=== PATIENT | female | born 1955 | race Caucasian/White ===

== ENCOUNTER 2016-06-06 07:35 | Emergency (ER) | payer OTHER ==
[2016-06-06 07:47] VITALS: BP 126/61
--- NOTE | 2016-06-06 08:53 | RAD ---
Indication: Lateral RIGHT ankle and foot pain post fall running yesterday. Comparison: None. Technique: AP, mortise, and lateral views RIGHT ankle . AP, lateral, and oblique views RIGHT foot. Report: Severe soft tissue swelling over the lateral malleolus. In addition to a chronic ossicle approximating the caudal margin of the lateral malleolus likely reflecting sequela of a previous avulsion fracture there is osseous irregularity at the lateral margin at the interface of the dominant lateral malleolus with the presumed old avulsion fragment suspicious for new grossly nondisplaced fracture. Negative for additional fracture about the ankle. Normal articular alignment about the ankle. Negative for fracture or malalignment at the foot. Preserved joint spaces. Unremarkable soft tissue contours distal to the ankle. IMPRESSION: Acute grossly nondisplaced fracture at the inferior margin of the lateral malleolus with stigmata of previous old avulsion fracture. Severe overlying soft tissue swelling. The ankle mortise remains congruent.
--- NOTE | 2016-06-06 09:23 | UC ---
Ethan Vogel Billy, scribed for Douglas Sterling MD on 06/06/16 at 0917 . Lower Extremity/Ankle HPI - HPI Summary HPI Summary: In Room Note: Patient is a 60 year-old female coming to [facility] for evaluation of right ankle and foot pain after tripping while running last night. There is swelling on the ankle. Pain is worse with ambulation and weightbearing, but she is still able to bear weight on the leg. Note: Vitals stable. Nurse's Note: Pt states she tripped while running in the [place] last night () and hurt her Right ankle, right foot, right chin pain. Pt states she has swelling on right side of her ankle. Pt denies any LOC and head/neck/back pain. - History of Current Complaint Chief Complaint: UCLowerExtremity Stated Complaint: FELL-RT ANKLE INJ Time Seen by Provider: 06/06/16 07:50 Hx Obtained From: Patient Onset/Duration: Sudden Onset, Still Present Severity Initially: Moderate Severity Currently: Moderate Pain Intensity: 8 Pain Scale Used: 0-10 Numeric Aggravating Factor(s): Standing, Ambulation Alleviating Factor(s): Rest Able to Bear Weight: Yes - Allergies/Home Medications Allergies/Adverse Reactions: Allergies Allergy/AdvReac Type Severity Reaction Status Date / Time No Known Allergies Allergy Verified 06/06/16 07:40 PMH/Surg Hx/FS Hx/Imm Hx Endocrine History Of: Denies: Diabetes Cardiovascular History Of: Denies: Cardiac Disorders - Surgical History Surgical History: Yes Surgery Procedure, Year, and Place: Left shoulder surgery; nasal fx set - Family History Known Family History: Negative: Hypertension - Social History 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1 F 06/06/16 07:41 Pulse 56 06/06/16 07:41 Resp 14 06/06/16 07:41 BP 126/61 06/06/16 07:41 Pulse Ox 100 06/06/16 07:41 Vital Signs Reviewed: Yes Eyes: Positive: Conjunctiva Clear ENT: Positive: Hearing grossly normal, Pharynx normal, TMs normal. Negative: Muffled/hoarse voice Neck: Positive: Supple, No Lymphadenopathy Respiratory: Positive: Chest non-tender, Lungs clear, Normal breath sounds, No respiratory distress Cardiovascular: Positive: RRR, No Murmur Abdomen Description: Positive: Nontender, No Organomegaly, Soft Bowel Sounds: Positive: Present Musculoskeletal Exam: Other - THERE IS MODERATE SWELLING OF THE LATERAL RIGHT MALLEOLUS. THERE IS NO PAIN OVER THE MEDIAL MALLEOLUS. THERE IS ECCHYMOSIS OVER THE DORSUM OF THE RIGHT FOOT. NO PAIN OVER THE FIFTH METATARSAL. TENDERNESS OF THE ANTERIOR TALOFIBULAR LIGAMENT AND OVER THE STYLOID OF THE FIBULA. Neurological: Positive: Alert Psychological: Positive: Age Appropriate Behavior Skin: Negative: rashes Diagnostics - Radiology Right Ankle Xray Radiology Interpretation Completed By: Radiologist - Acute grossly nondisplaced fracture at the inferior margin of the lateral malleolus with stigmata of previous old avulsion fracture. Severe overlying soft tissue swelling. The ankle mortise remains congruent. Right Foot XRay Radiology Interpretation Completed By: Radiologist - Acute grossly nondisplaced fracture at the inferior margin of the lateral malleolus with stigmata of previous old avulsion fracture. Severe overlying soft tissue swelling. The ankle mortise remains congruent. Lower Extremity Course/Dx - Course Course Of Treatment: Medications have been included in the original chart and reviewed. Patient is Urgent/Emergent. BP elevated due to current condition w/o HTN in PMH. This is a 60 year-old female coming to the [facility] for evaluation of right ankle and foot pain since last night. X-rays shows an acute grossly nondisplaced fracture at the inferior margin of the lateral malleolus with stigmata of previous old avulsion fracture. Discussed the condition with the patient, who has a fracture of the distal fibula. She will be given a gel cast and crutches to follow up with orthopedics. - Differential Dx/Diagnosis Provider Diagnoses: nondisplaced fracture at the inferior margin of the lateral malleolus with stigmata of previous old avulsion fracture Discharge - Discharge Plan Condition: Stable Disposition: HOME Patient Education Materials: Ankle Fracture (ED) Referrals: Bettina Ann NP [Nurse Practitioner] - Additional Instructions: WE DISCUSSED: You have a fracture in the thin bone at your right ankle. Gelcast, demetrius, crutches, non-weight bearing until you follow up with your orthopedist. Warm moist heat in the morning and then ice for pain during the day. Elevate. Call us for any questions or concerns. "If it hurts, don't do it," is a good rule of thumb. The documentation as recorded by the Ethan hubbard Billy accurately reflects the service I personally performed and the decisions made by me, Douglas Sterling MD.
== END 2016-06-06 09:40 | disposition home or self-care (01) ==
LOC: UCEAST 07:35
DX: S82.64XA Nondisplaced fracture of lateral malleolus of right fibula, initial encounter for closed fracture (principal); W18.40XA Slipping, tripping and stumbling without falling, unspecified, initial encounter; Y93.02 Activity, running; Y92.821 Forest as the place of occurrence of the external cause
CPT/HCPCS: 99213; G0463

== ENCOUNTER 2018-01-15 13:11 | Emergency (ER) | payer OTHER ==
--- OUTSIDE RECORDS SUMMARY | 2018-01-15 13:19 | XMS REPORT | Continuity of Care Document ---
:1955 External Reference #:[id number] Author Name Osito Acharya D.O. Address [address] [place] [address] Care Team Providers Name Role Phone HCP given Primary Care Physician Unavailable Payers Type Date Identification Numbers Payment Provider Subscriber Effective: 2006 Policy Number: [id number] [facility] Bárbara Shelby PayID: [id number] [address] [place] [address] Advance Directives Description No Information Available Problems Description No Information Family History Date Family Member(s) Problem(s) Comments General Allergic Rhinitis Father Diabetes, Nos Father Hypertension Father Hypercholesterolemia Mother Allergic Rhinitis Mother Breast Cancer breast cancer in her 60's Mother Hypertension Mother Hypercholesterolemia : (2005) Mother due to Colon Cancer Siblings 3 1 brother 2 sisters First Sister Allergic Rhinitis First Sister Obesity : (2009) Second Sister due to Severe cerebral pt states her sister patricia was expected to live for 2 yrs. Social History Type Date Description Comments Sex Unknown Education High School Completed Education Highest Level Completed Post Grad Marital Status Work Status Currently Working ETOH Use Rarely consumes alcohol Recreational Drug Use Former Drug User smoked a lil radha harris Enjoy Exercising Enjoys exercising Sun Exposure Does not use sunscreen Seat Belt/Car Seat Seat Belt Use - Yes Currently Active Patient is currently sexually active Contraceptive Methods None Age Age 1st [place] 18 Years Old # Partners in a Lifetime Partners 1-5 Allergies, Adverse Reactions, Alerts Date Description Reaction Status Severity Comments 12/09/2016 Environmental Active Medications Medication Date Status Form Strength Qnty SIG Indications Ordering Provider Vitamin D 12/30/ Active one po Unknown 2017 daily Restasis 12/30/ Active Emulsion 0.05% 1 drop both Unknown 2017 eyes every 12 hours Butalbital/Acet 09/29/ Active Capsules 50-325-40m 14caps 1-2 at G43.909 Marck aminophen/Caffe 2017 g onset of Osito, ine migraine D.O. every 6 hours as needed for migraine code d Doxycycline 11/17/ Hx Tablets 100mg 28tabs 1 cap by A69.20 Marck Hyclate 2018 - mouth twice Osito, 12/01/ a day for D.O. 2018 14 days Triamcinolone 08/14/ Hx Ointment 0.5% 15gm apply S70.362A Silcoff, Acetonide 2018 - morning and Segun, 08/21/ night and M.D. 2018 rub in well to the affected area x 7 days, or less Benadryl 09/29/ Hx Capsules 25mg as needed Unknown Allergy 2017 - for allergies 2017 Immunizations CPT Code Status Date Vaccine Lot # [id number] Given 10/11/2017 Influenza Virus Vaccine, Quadrivalent, Split, [place] Use 6[address]45 Given 11/28/2016 Influenza Virus Vaccine, Quadrivalent, Split, Preservative Free 07909 Given 12/20/2015 Influenza Virus Vaccine, Quadrivalent, Split, Preservative Free 49218 Given 02/25/2013 Influenza Virus Vaccine, Quadrivalent, Split, Preservative Free 97479 Given 11/22/2011 Adacel or Boostrix, TDaP 97228 Given 11/22/2011 Influenza Virus Vaccine, Quadrivalent, Split, Preservative Free 58424 Given 11/22/2010 Influenza Virus Vaccine, Quadrivalent, Split, Preservative Free 49831 Given 11/08/2009 Influenza Virus Vaccine, Quadrivalent, Split, Preservative Free 94207 Given 03/02/2009 Influenza Virus Vaccine, Quadrivalent, Split, Preservative Free 99283 Given 12/01/2007 Influenza Virus Vaccine, Quadrivalent, Split, Preservative Free 98118 Given 11/26/2006 Influenza Virus Vaccine, Quadrivalent, Split, Preservative Free 41660 Given 12/17/2005 Influenza Virus Vaccine, Quadrivalent, Split, Preservative Free Vital Signs Date Vital Result Comment 01/06/2018 9:14am BP Systolic 124 mmHg BP Diastolic 78 mmHg Height 66 inches 5'6" Weight 148.00 lb BMI (Body Mass Index) 23.9 kg/m2 11/17/2017 4:02pm BP Systolic 122 mmHg BP Diastolic 74 mmHg Weight 143.00 lb 08/14/2017 3:10pm BP Systolic 134 mmHg BP Diastolic 82 mmHg Weight 143.00 lb 12/31/2016 9:21am BP Systolic 135 mmHg BP Diastolic 80 mmHg Height 66.25 inches with shoes Weight 145.00 lb with shoes BMI (Body Mass Index) 23.2 kg/m2 09/30/2016 9:54am BP Systolic 140 mmHg BP Diastolic 84 mmHg Height 65.75 inches 5'5.75" Weight 137.00 lb BMI (Body Mass Index) 22.3 kg/m2 Results Test Date Facility Test Result H/L Range Note Laboratory test 12/12/2017 [facility] Glucose 87 mg/dL N 70-100 finding [phone] Lipid Profile 12/12/2017 [facility] Triglycerides 106 mg/dL 1 (Trig/Chol/HDL) [phone] Cholesterol 217 mg/dL 2 HDL Cholesterol 87.9 mg/dL 3 LDL Cholesterol 108 mg/dL 4 Lyme Western Blot 12/12/2017 [facility] Lyme Disease IgG Negative Negative [phone] Ab WB Lyme Disease IgG Bands Present p41 kDa Lyme Disease IgM Ab WB Negative Negative Lyme Disease IgM Bands Present No bands detecte <SEE NOTE> kDa 5 Lyme Disease Interpretation See Comment 6 CBC Auto Diff 12/12/2017 [facility] White Blood Count 5.7 10^3/uL N 3.5-10.8 [phone] Red Blood Count 4.28 10^6/uL N 4.00-5.40 Hemoglobin 13.0 g/dL N 12.0-16.0 Hematocrit 39 % N 35-47 Mean Corpuscular Volume 91 fL N 80-97 Mean Corpuscular Hemoglobin 30 pg N 27-31 Mean Corpuscular HGB Conc 33 g/dL N 31-36 Red Cell Distribution Width 14 % N 10.5-15 Platelet Count 288 10^3/uL N 150-450 Mean Platelet Volume 7.2 fL Low 7.4-10.4 Abs Neutrophils 2.1 10^3/uL N 1.5-7.7 Abs Lymphocytes 2.9 10^3/uL N 1.0-4.8 Abs Monocytes 0.3 10^3/uL N 0-0.8 Abs Eosinophils 0.4 10^3/uL N 0-0.6 Abs Basophils 0 10^3/uL N 0-0.2 Abs Nucleated RBC 0 10^3/uL Granulocyte % 36.4 % Low 38-83 Lymphocyte % 50.4 % High 25-47 Monocyte % 5.2 % N 0-7 Eosinophil % 7.4 % High 0-6 Basophil % 0.6 % N 0-2 Nucleated Red Blood Cells % 0.3 Comp Metabolic Panel 12/12/2017 [facility] Sodium 144 mmol/L N 135- 145 [phone] Potassium 4.6 mmol/L N 3.5-5.0 Chloride 105 mmol/L N 101-111 Co2 Carbon Dioxide 32 mmol/L N 22-32 Anion Gap 7 mmol/L N 2-11 Blood Urea Nitrogen 13 mg/dL N 6-24 Creatinine 0.89 mg/dL N 0.51-0.95 BUN/Creatinine Ratio 14.6 N 8-20 Calcium 9.6 mg/dL N 8.6-10.3 Total Protein 7.1 g/dL N 6.4-8.9 Albumin 4.4 g/dL N 3.2-5.2 Globulin 2.7 g/dL N 2-4 Albumin/Globulin Ratio 1.6 N 1-3 Total Bilirubin 0.50 mg/dL N 0.2-1.0 Alkaline Phosphatase 71 U/L N 34-104 Alt 19 U/L N 7-52 Ast 27 U/L N 13-39 Egfr Non- 64.7 >60 Egfr 78.3 >60 7 Laboratory test 12/12/2017 [facility] TSH (Thyroid 2.84 mcIU/mL N 0.34-5.60 8 finding [phone] Stim Horm) Vitamin D Total 25(Oh) 31.7 ng/mL N 20-50 9 Laboratory test 11/29/2016 [facility] Vitamin D Total 27.3 ng/mL N 20 -50 10 finding [phone] 25(Oh) Lipid Profile 11/29/2016 [facility] Triglycerides 50 mg/dL N 11 (Trig/Chol/HDL) [phone] Cholesterol 230 mg/dL N 12 HDL Cholesterol 87.8 mg/dL N 13 LDL Cholesterol 132 mg/dL N 14 Laboratory test 11/29/2016 [facility] Hepatitis C Nonreactive N Nonreactive 15 finding [phone] Antibody TSH (Thyroid Stim Horm) 2.95 mcIU/mL N 0.34-5.60 16 Comp Metabolic Panel 11/29/2016 [facility] Sodium 139 mmol/L N 133- 145 [phone] Potassium 4.6 mmol/L N 3.5-5.0 Chloride 103 mmol/L N 101-111 Co2 Carbon Dioxide 32 mmol/L N 22-32 Anion Gap 4 mmol/L N 2-11 Glucose 81 mg/dL N 70-100 Blood Urea Nitrogen 18 mg/dL N 6-24 Creatinine 1.02 mg/dL High 0.51-0.95 BUN/Creatinine Ratio 17.6 N 8-20 Calcium 9.7 mg/dL N 8.6-10.3 Total Protein 7.0 g/dL N 6.4-8.9 Albumin 4.3 g/dL N 3.2-5.2 Globulin 2.7 g/dL N 2-4 Albumin/Globulin Ratio 1.6 N 1-3 Total Bilirubin 0.60 mg/dL N 0.2-1.0 Alkaline Phosphatase 73 U/L N 34-104 Alt 16 U/L N 7-52 Ast 21 U/L N 13-39 Egfr Non- 55.5 N >60 Egfr 71.3 N >60 17 CBC Auto Diff 11/29/2016 [facility] White Blood Count 6.4 10^3/uL N 3.5-10.8 [phone] Red Blood Count 4.35 10^6/uL N 4.0-5.4 Hemoglobin 13.1 g/dL N 12.0-16.0 Hematocrit 40 % N 35-47 Mean Corpuscular Volume 91 fL N 80-97 Mean Corpuscular Hemoglobin 30 pg N 27-31 Mean Corpuscular HGB Conc 33 g/dL N 31-36 Red Cell Distribution Width 14 % N 10.5-15 Platelet Count 329 10^3/uL N 150-450 Mean Platelet Volume 8 um3 N 7.4-10.4 Abs Neutrophils 3.0 10^3/uL N 1.5-7.7 Abs Lymphocytes 2.4 10^3/uL N 1.0-4.8 Abs Monocytes 0.4 10^3/uL N 0-0.8 Abs Eosinophils 0.6 10^3/uL N 0-0.6 Abs Basophils 0.1 10^3/uL N 0-0.2 Abs Nucleated RBC 0.01 10^3/uL N Granulocyte % 46.4 % N 38-83 Lymphocyte % 37.0 % N 25-47 Monocyte % 6.0 % N 1-9 Eosinophil % 9.6 % High 0-6 Basophil % 1.0 % N 0-2 Nucleated Red Blood Cells % 0.1 N 1 Desirable: <150 Borderline High: 150-199 High: 200-499 Very High: >500 2 Desirable: <200 Borderline High: 200-239 High: >239 3 Low: <40 Desirable: 40-60 High: >60 4 Desirable: <100 Near Optimal: 100-129 Borderline High: 130-159 High: 160-189 Very High: >189 5 No bands detected 6 Specific serologic response to B. burgdorferi infection is not detected, but cannot rule out early infection during which low or undetectable antibody levels to B. burgdorferi may be present. If clinically indicated, a new serum specimen should be submitted in 7-14 days. ADDITIONAL INFORMATION Per CDC criteria, the Lyme IgG Immunoblot is interpreted as positive if IgG-class antibodies are detected to >=5 B. burgdorferi proteins, and the Lyme IgM Immunoblot is interpreted as positive if IgM-class antibodies are detected to >=2 B. burgdorferi proteins. Immunoblot patterns not meeting these criteria should not be interpreted as positive. Epitopes from certain B. burgdorferi proteins (e.g., p41) are conserved across other bacteria, which may lead to the detection of IgM- and/or IgG-class antibodies on the Lyme disease immunoblots in patients without Lyme disease. Immunoblot should only be ordered on specimens that are positive or equivocal by a FDA-licensed Lyme disease antibody screening test (e.g., EIA). Results of the Lyme IgM immunoblot should not be considered in patients with >=30 days of symptoms. Test Performed by: [facility] [address] [place] [address] 7 Because ethnic data is not always readily available, this report includes an eGFR for both -Americans and non- Americans. The National Kidney Disease Education Program (NKDEP) does not endorse the use of the MDRD equation for patients that are not between the ages of 18 and 70, are , have extremes of body size, muscle mass, or nutritional status, or are non- or non-. According to the National Kidney Foundation, irrespective of diagnosis, the stage of the disease is based on the level of kidney function: Stage Description GFR(mL/min/1.73 m(2)) 1 Kidney damage with normal or decreased GFR 90 2 Kidney damage with mild decrease in GFR 60-89 3 Moderate decrease in GFR 30-59 4 Severe decrease in GFR 15-29 5 Kidney failure <15 (or dialysis) 8 FASTING 12 HOUR 9 FASTING 12 HOUR 10 FASTING 12 HOUR 11 Desirable: <150 Borderline High: 150-199 High: 200-499 Very High: >500 12 Desirable: <200 Borderline High: 200-239 High: >239 13 Low: <40 Desirable: 40-60 High: >60 14 Desirable: <100 Near Optimal: 100-129 Borderline High: 130-159 High: 160-189 Very High: >189 15 FASTING 12 HOUR 16 FASTING 12 HOUR 17 Because ethnic data is not always readily available, this report includes an eGFR for both -Americans and non- Americans. The National Kidney Disease Education Program (NKDEP) does not endorse the use of the MDRD equation for patients that are not between the ages of 18 and 70, are , have extremes of body size, muscle mass, or nutritional status, or are non- or non-. According to the National Kidney Foundation, irrespective of diagnosis, the stage of the disease is based on the level of kidney function: Stage Description GFR(mL/min/1.73 m(2)) 1 Kidney damage with normal or decreased GFR 90 2 Kidney damage with mild decrease in GFR 60-89 3 Moderate decrease in GFR 30-59 4 Severe decrease in GFR 15-29 5 Kidney failure <15 (or dialysis) Procedures Date Code Description Status 10/31/2017 [id number] Mammogram Completed 02/10/2014 [id number] Mammogram Completed 12/12/2013 [id number] Colonoscopy Completed Encounters Type Date Location Provider Dx Diagnosis Office Visit 11/17/2017 Main Office Osito Acharya, A69.20 Lyme disease, 3:45p D.O. unspecified R21 Rash and other nonspecific skin eruption S30.860S Insect bite (nonvenomous) of lower back and pelvis, sequela Office Visit 08/14/2017 3:00p Main Office Dana Corcoran, S70.362A Insect bite P.A. (nonvenomous), left thigh, initial encounter Office Visit 09/30/2016 9:15a Main Office Marck Z12.31 Encntr screen Gibran Mcneill mammogram for malignant neoplasm of breast Z12.11 Encounter for screening for malignant neoplasm of colon Z00.00 Encntr for general adult medical exam w/o abnormal findings Z13.820 Encounter for screening for osteoporosis Z86.010 Personal history of colonic polyps J30.89 Other allergic rhinitis G43.909 Migraine, unsp, not intractable, without status migrainosus Plan of Treatment 01/06/2018 - Osito Acharya D.O.Z00.00 Encounter for general adult medical examination without abnormal findingsFollow up:1 year LIZZ
--- OUTSIDE RECORDS SUMMARY | 2018-01-15 13:19 | XMS REPORT | Continuity of Care Document ---
:1955 External Reference #:[id number] Author Name Osito Acharya D.O. Address [address] [place] [address] Care Team Providers Name Role Phone HCP given Primary Care Physician Unavailable Payers Type Date Identification Numbers Payment Provider Subscriber Effective: 2006 Policy Number: [id number] [facility] Bárbara Shelyb PayID: [id number] [address] [place] [address] Advance Directives Description No Information Available Problems [...] active Contraceptive Methods None Age Age 1st [place] 18 Years Old # Partners in a [...] CPT Code Status Date Vaccine Lot # [id number] Given 10/11/2017 Influenza Virus Vaccine, Quadrivalent, Split, [place] Use 44684 Given 11/28/2016 Influenza Virus Vaccine, Quadrivalent, Split, Preservative Free 55923 Given 12/20/2015 Influenza Virus Vaccine, Quadrivalent, Split, Preservative Free 12523 Given 02/25/2013 Influenza Virus Vaccine, Quadrivalent, Split, Preservative Free 88372 Given 11/22/2011 Adacel or Boostrix, TDaP 79079 Given 11/22/2011 Influenza Virus Vaccine, Quadrivalent, Split, Preservative Free 54173 Given 11/22/2010 Influenza Virus Vaccine, Quadrivalent, Split, Preservative Free 85449 Given 11/08/2009 Influenza Virus Vaccine, Quadrivalent, Split, Preservative Free 94770 Given 03/02/2009 Influenza Virus Vaccine, Quadrivalent, Split, Preservative Free 71821 Given 12/01/2007 Influenza Virus Vaccine, Quadrivalent, Split, Preservative Free 41290 Given 11/26/2006 Influenza Virus Vaccine, Quadrivalent, Split, Preservative Free 90435 Given 12/17/2005 Influenza Virus Vaccine, Quadrivalent, Split, [...] Result H/L Range Note Laboratory test 12/12/2017 [facility] Glucose 87 mg/dL N 70-100 finding [phone] Lipid Profile 12/12/2017 [facility] Triglycerides 106 mg/dL 1 (Trig/Chol/HDL) [phone] Cholesterol 217 mg/dL 2 HDL Cholesterol 87.9 mg/dL 3 LDL Cholesterol 108 mg/dL 4 Lyme Western Blot 12/12/2017 [facility] Lyme Disease IgG Negative Negative [phone] Ab WB Lyme Disease IgG Bands Present p41 kDa Lyme Disease IgM Ab WB Negative Negative Lyme Disease IgM Bands Present No bands detecte <SEE NOTE> kDa 5 Lyme Disease Interpretation See Comment 6 CBC Auto Diff 12/12/2017 [facility] White Blood Count 5.7 10^3/uL N 3.5-10.8 [phone] Red Blood Count 4.28 10^6/uL N 4.00-5.40 [...] Cells % 0.3 Comp Metabolic Panel 12/12/2017 [facility] Sodium 144 mmol/L N 135- 145 [phone] Potassium 4.6 mmol/L N 3.5-5.0 Chloride 105 [...] Egfr 78.3 >60 7 Laboratory test 12/12/2017 [facility] TSH (Thyroid 2.84 mcIU/mL N 0.34-5.60 8 finding [phone] Stim Horm) Vitamin D Total 25(Oh) 31.7 ng/mL N 20-50 9 Laboratory test 11/29/2016 [facility] Vitamin D Total 27.3 ng/mL N 20 -50 10 finding [phone] 25(Oh) Lipid Profile 11/29/2016 [facility] Triglycerides 50 mg/dL N 11 (Trig/Chol/HDL) [phone] Cholesterol 230 mg/dL N 12 HDL Cholesterol 87.8 mg/dL N 13 LDL Cholesterol 132 mg/dL N 14 Laboratory test 11/29/2016 [facility] Hepatitis C Nonreactive N Nonreactive 15 finding [phone] Antibody TSH (Thyroid Stim Horm) 2.95 mcIU/mL N 0.34-5.60 16 Comp Metabolic Panel 11/29/2016 [facility] Sodium 139 mmol/L N 133- 145 [phone] Potassium 4.6 mmol/L N 3.5-5.0 Chloride 103 [...] N >60 17 CBC Auto Diff 11/29/2016 [facility] White Blood Count 6.4 10^3/uL N 3.5-10.8 [phone] Red Blood Count 4.35 10^6/uL N 4.0-5.4 [...] >=30 days of symptoms. Test Performed by: [facility] [address] [place] [address] 7 Because ethnic data is not always [...] dialysis) Procedures Date Code Description Status 10/31/2017 [id number] Mammogram Completed 02/10/2014 [id number] Mammogram Completed 12/12/2013 [id number] Colonoscopy Completed Encounters Type Date Location Provider [...] intractable, without status migrainosus Plan of Treatment Future Appointment(s):01/11/2019 9:15 am - Osito Acharya D.O. at [facility]/06/2018 - Osito Acharya D.O.Z00.00 Encounter for general adult medical examination without abnoFollow up:1 [facility] En[facility] for screening for malignant neoplasm of cervixComments:With normal pap results and negative HPV repeat in 3-5years.
--- NOTE | 2018-01-15 13:54 | UC ---
Lower Extremity/Ankle HPI - HPI Summary HPI Summary: 62 yo female presents with RIGHT ankle pain. She tells me that last night she accidentally stepped in a hole and inverted her right ankle. Is ambulatory without assistance, but has pain. She has fractured this ankle twice in the past and is concerned about possible fracture today. She has been applying ice and taking tylenol/ibuprofen with good relief. Denies numbness or tingling. - History of Current Complaint Stated Complaint: ANKLE INJURY Time Seen by Provider: 01/15/18 13:54 Hx Obtained From: Patient Onset/Duration: Sudden Onset Severity Initially: Moderate Severity Currently: Moderate Pain Intensity: 6 Pain Scale Used: 0-10 Numeric Aggravating Factor(s): Standing, Ambulation Able to Bear Weight: Yes - Allergies/Home Medications Allergies/Adverse Reactions: Allergies Allergy/AdvReac Type Severity Reaction Status Date / Time No Known Allergies Allergy Verified 01/15/18 14:02 Home Medications: Home Medications Butalb/Acetaminophen/Caffeine [Butalbital/APAP/Caffeine 50-300-40 mg] 1 cap PO Q6HR 01/15/18 [History Confirmed 01/15/18] Ibuprofen 400 mg PO ONCE PRN 01/15/18 [History Confirmed 01/15/18] PMH/Surg Hx/FS Hx/Imm Hx Neurological History: Migraine - Surgical History Surgical History: Yes Surgery Procedure, Year, and Place: Left shoulder surgery; nasal fx set - Family History Known Family History: Negative: Hypertension - Social History Occupation: Employed Full-time Lives: With Family Alcohol Use: Rare Substance Use Type: None Smoking Status (MU): Never Smoked Tobacco Review of Systems All Other Systems Reviewed And Are Negative: Yes Constitutional: Positive: Negative Skin: Positive: Negative Respiratory: Positive: Negative Cardiovascular: Positive: Negative Neurovascular: Positive: Negative Musculoskeletal: Positive: Other: - Right ankle pain Neurological: Positive: Negative Psychological: Positive: Negative Physical Exam - Summary Physical Exam Summary: GENERAL: NAD. WDWN. No pain distress. SKIN: No rashes, sores, lesions, or open wounds. CHEST: No accessory muscle use. Breathing comfortably and in no distress. CV: Pulses intact PT and DP. Cap refill <2seconds MSK: Right ankle: Mild TTP about lateral malleolus and ATFL. FROM including plantar flexion and dorsiflexion. Mild edema at lateral malleolus. Negative talar tilt. No increased laxity. Negative [place] test. NEURO: Alert. Sensations intact and symmetric B/L LEs PSYCH: Age appropriate behavior. Triage Information Reviewed: Yes Vital Signs: Vital Signs: Temp Pulse Resp BP Pulse Ox 97.2 F 46 18 157/70 99 01/15/18 13:55 01/15/18 13:55 01/15/18 13:55 01/15/18 13:55 01/15/18 13:55 Vital Signs Reviewed: Yes Lower Extremity Course/Dx - Course Course Of Treatment: XR: IMPRESSION: #. Mild lateral soft tissue swelling without acute fracture or malalignment. Suspect ankle sprain. Pt has crutches, walking boot, and air cast at home. Advised to use these, RICE, and continue tylenol/ibuprofen for discomfort. - Differential Dx/Diagnosis Provider Diagnosis: Right ankle sprain Discharge - Sign-Out/Discharge Documenting (check all that apply): Patient Departure All imaging exams completed and their final reports reviewed: Yes - Discharge Plan Condition: Stable Disposition: HOME Patient Education Materials: Ankle Sprain (ED) Referrals: Osito Acharya DO [Primary Care Provider] - Additional Instructions: If you develop a fever, shortness of breath, chest pain, new or worsening symptoms - please call your PCP or go to the ED. Your blood pressure was high at todays visit. Please see your primary provider within 4 weeks for recheck and re-evaluation. 1) Rest, Ice, and elevate your ankle as much as possible 2) Use your at home crutches/air cast/walking boot as needed for comfort 3) If your symptoms do not improve - please follow up with your Orthopedic doctor - Billing Disposition and Condition Condition: STABLE Disposition: Home
[2018-01-15 14:02] VITALS: BP 157/70
== END 2018-01-15 14:55 | disposition home or self-care (01) ==
LOC: UCEAST 13:11
DX: S93.401A Sprain of unspecified ligament of right ankle, initial encounter (principal); X50.1XXA Overexertion from prolonged static or awkward postures, initial encounter; Y92.9 Unspecified place or not applicable
CPT/HCPCS: 99212; G0463

== ENCOUNTER 2019-02-26 17:17 | Emergency (ER) | payer OTHER ==
--- OUTSIDE RECORDS SUMMARY | 2019-02-26 17:30 | XMS REPORT | Summary of Care ---
:1954 Author Organization [facility] Address [address] [place] [address] Care Team Providers Name Role Phone [facility] Primary Care Provider Reason for Referral Procedure/Treatment (Routine) Status Reason Specialty Diagnoses / Procedures Referred By Contact Referred To Contact Open Diagnoses Mediastinal adenopathy [facility] Procedures Spirometry + pre & post bronchodilator test (albuterol or xopenex) [address] 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 Room [address] [place] [address] [place], [place] [phone] Allergies Active Allergy Reactions Severity Noted Date Comments Penicillins Anaphylaxis High 11/30/2018 documented as of this encounter (statuses as of 01/28/2019) Medications Medication Sig Dispensed Refills Start Date End Date Status hydrochlorothiazide Take 25 mg by 3 09/10/2018 Active (HYDRODIURIL) 25 MG tablet mouth daily pantoprazole (PROTONIX) 40 Take 1 tablet 30 tablet 5 12/03/20182019 Active MG tablet by mouth daily Additional information Patient not taking. Reported on 01/21/2019 1:59 PM calcium-vitamin D (OSCAL) Take 1 tablet by 30 tablet 5 12/03/20182019 Active 250-125 MG-UNIT per tablet mouth daily Omeprazole (PRILOSEC PO) Take 20 mg by 0 Active mouth daily Acetaminophen 325 MG Oral Take 650 mg by 0 Active Tablet mouth every 4 (four) hours as needed for Pain documented as of this encounter (statuses as of 01/28/2019) Active Problems Problem Noted Date Sarcoidosis 01/28/2019 Non-seasonal allergic rhinitis 01/28/2019 Uveitis 12/11/2018 Mediastinal adenopathy 12/01/2018 documented as of this encounter (statuses as of 01/28/2019) Resolved Problems Problem Noted Date Resolved Date Giant cell arteritis 11/30/2018 01/28/2019 documented as of this encounter (statuses as of 01/28/2019) Social History Tobacco Use Types Packs/Day Years Used Date Former Smoker 0 Smokeless Tobacco: Never Used Comments: quit 2000 Alcohol Use Drinks/Week oz/Week Comments Not Currently alcohol abuse quit 2000 Sex Assigned at Date Recorded Not on file Job Start Date Occupation Industry Not on file Not on file Not on file Travel History Travel Start Travel End No recent travel history available. documented as of this encounter Last Filed Vital Signs Not on filedocumented in this encounter Plan of Treatment Date Type Specialty Care Team Description 02/25/2019 Office Visit Neurology Valentine Johnson MD [address] [facility] 4[address] [place] [address] [phone] 04/29/2019 Office Visit Pulmonology Name Type Priority Associated Diagnoses Date/Time Spirometry + pre & post PFT Routine Mediastinal adenopathy 01/28/2019 8: 49 AM bronchodilator test EST (albuterol or xopenex) Health Maintenance Due Date Last Done Comments MMR Vaccines (1 of 1 - 1955 Standard series) Varicella Vaccines (1 of 2 - 1955 2-dose childhood series) Pneumococcal Vaccine: 1960 Pediatrics (0 to 5 Years) and At-Risk Patients (6 to 64 Years) (1 of 1 - PPSV23) DTaP,Tdap,and Td Vaccines (1 08/07/1963 - Tdap) Colon Cancer Screening 10 yrs 2006 Zoster Vaccines (1 of 2) 2006 Influenza Vaccine 11/10/2018 Pneumococcal Vaccine: 65+ 2021 Years (1 of 2 - PCV13) HIV Screening Completed 11/30/2018 Hepatitis C Screening (B. Completed 11/30/2018, [id number]) 11/30/2018 HIB Vaccines Aged Out No longer eligible based on patient's age to complete this topic Hepatitis A Vaccines Aged Out No longer eligible based on patient's age to complete this topic Hepatitis B Vaccines Aged Out No longer eligible based on patient's age to complete this topic IPV Vaccines Aged Out No longer eligible based on patient's age to complete this topic documented as of this encounter Procedures Procedure Name Priority Date/Time Associated Diagnosis Comments SPIROMETRY + PRE & POST Routine 01/28/2019 8:49 AM Mediastinal adenopathy BRONCHODILATOR TEST EST (ALBUTEROL OR XOPENEX) documented in this encounter Results Not on filedocumented in this encounter Visit Diagnoses Diagnosis Mediastinal adenopathy - Primary Enlargement of lymph nodes documented in this encounter
--- OUTSIDE RECORDS SUMMARY | 2019-02-26 17:30 | XMS REPORT | Continuity of Care Document ---
:1955 External Reference #:[id number] Author Name Osito Acharya D.O. Address [address] [place] [address] Care Team Providers Name Role Phone HCP given Care Team Information Gasoline Tester Unavailable Mindy Miner MD - Allergy Care Team Information Gasoline Tester [phone] Problems Description No Information Available Social History Type Date Description Comments Sex Unknown ETOH Use Rarely consumes alcohol Recreational Drug Use Former Drug User smoked a michael harris Enjoy Exercising Enjoys exercising Sun Exposure Does not use sunscreen Seat Belt/Car Seat Seat Belt Use - Yes Allergies, Adverse Reactions, Alerts Active Allergies Reaction Severity Comments Date Environmental 12/09/2016 Medications Active Medications SIG Qnty Indications Ordering Provider Date Ibuprofen 2 to 4 tab by Unknown 09/28/2018 200mg mouth 6 to 8 Capsules hours as needed for pain or fever. Vitamin D one po daily Unknown 12/30/2016 Restasis 1 drop both eyes Unknown 12/30/2016 0.05% Emulsion every 12 hours Butalbital/Acetaminop Take 1 To 2 14caps G43.909 Osito Acharya, 2016 hen/Caffeine Capsules By Mouth D.O. AT Onset Of 50-325-40mg Capsules Migraine Every 6 Hours as Needed Immunizations CPT Code Status Date Vaccine Lot # [id number] Given 12/11/2018 Influenza Virus Vaccine, Quadrivalent, Split, Preservative Free 80328 Given 10/11/2017 Influenza Virus Vaccine, Quadrivalent, Split, [place] Use 55144 Given 11/28/2016 Influenza Virus Vaccine, Quadrivalent, Split, Preservative Free 89277 Given 12/20/2015 Influenza Virus Vaccine, Quadrivalent, Split, Preservative Free 07640 Given 02/25/2013 Influenza Virus Vaccine, Quadrivalent, Split, Preservative Free 99189 Given 11/22/2011 Adacel or Boostrix, TDaP 51800 Given 11/22/2011 Influenza Virus Vaccine, Quadrivalent, Split, Preservative Free 66538 Given 11/22/2010 Influenza Virus Vaccine, Quadrivalent, Split, Preservative Free 80841 Given 11/08/2009 Influenza Virus Vaccine, Quadrivalent, Split, Preservative Free 50880 Given 03/02/2009 Influenza Virus Vaccine, Quadrivalent, Split, Preservative Free 62153 Given 12/01/2007 Influenza Virus Vaccine, Quadrivalent, Split, Preservative Free 31276 Given 11/26/2006 Influenza Virus Vaccine, Quadrivalent, Split, Preservative Free 06712 Given 12/17/2005 Influenza Virus Vaccine, Quadrivalent, Split, Preservative Free Vital Signs Date Vital Result Comment 01/11/2019 9:15am BP Systolic 116 mmHg BP Diastolic 78 mmHg Weight 146.00 lb 09/29/2018 3:48pm BP Systolic 108 mmHg BP Diastolic 64 mmHg Body Temperature 97.8 F Results Test Acquired Facility Test Result H/L Range Note Date Laboratory test 01/11/2019 [facility] TSH (Thyroid 2.80 Normal 0.34- 5.60 finding [phone] Stim Horm) mcIU/mL Laboratory test 01/11/2019 [facility] Erythrocyte Sed 12 mm/Hr Normal 0-29 finding [phone] Rate C Reactive Protein 2.91 mg/L Normal <8.01 Lipid Profile (Trig/Chol/HDL) 01/04/2019 [facility] Triglycerides 115 mg/dL 1 [phone] Cholesterol 238 mg/dL 2 HDL Cholesterol 85.9 mg/dL 3 LDL Cholesterol 129 mg/dL 4 Laboratory test 01/04/2019 [facility] Glucose 84 mg/dL Normal 70-100 5 finding [phone] Xray 08/27/2018 [facility] Medicine X-Ray, No fracture 6 Forearm, Two Views, RT 1 Desirable: <150 Borderline High: 150-199 High: 200-499 Very High: >500 2 Desirable: <200 Borderline High: 200-239 High: >239 3 Low: <40 Desirable: 40-60 High: >60 4 Desirable: <100 Near Optimal: 100-129 Borderline High: 130-159 High: 160-189 Very High: >189 5 FASTING 12 HOUR 6 Normal radius, ulna and carpal bones as viewed. No fracture. Procedures Date Code Description Status 11/02/2018 [id number] Mammogram Completed 08/27/2018 55361 X-Ray Forearm ,Ap & Lateral Views Completed 07/17/2018 05708 X-Ray Shoulder Two Or More Views Completed 12/12/2016 [id number] Colonoscopy Completed 12/09/2014 [id number] Mammogram Completed Medical Devices Description No Information Available Encounters Type Date Location Provider Dx Diagnosis Office Visit 09/29/2018 Main Office Osito Acharya, S70.362A Insect bite 3:00p D.O. (nonvenomous), left thigh, initial encounter Office Visit 08/27/2018 Main Office Osito Acharya, M25.531 Pain in right wrist 1:30p D.O. M79.641 Pain in right hand S60.211A Contusion of right wrist, initial encounter M79.601 Pain in right arm W55.12xA Struck by horse, initial encounter Office Visit 07/17/2018 2:30p Main Office Osito Acharya, M25.512 Pain in left D.O. shoulder Z68.22 Body mass index (BMI) 22.0-22.9, adult Assessments Date Code Description Provider 01/11/2019 H04.123 Dry eye syndrome of bilateral lacrimal Osito Acharya D.O. glands 01/11/2019 I73.00 Raynaud's syndrome without gangrene Osito Acharya D.O. 01/11/2019 Z00.00 Encounter for general adult medical Osito Acharya D.O. examination without abno 01/11/2019 M79.641 Pain in right hand Osito Acharya D.O. 01/11/2019 M79.642 Pain in left hand Osito Acharya D.O. 09/29/2018 S70.362A Insect bite (nonvenomous), left thigh, Osito Acharya D.O. initial encounter 08/27/2018 M25.531 Pain in right wrist Osito Acharya D.O. 08/27/2018 M79.641 Pain in right hand Osito Acharya D.O. 08/27/2018 S60.211A Contusion of right wrist, initial encounter Osito Acharya D.O. 08/27/2018 M79.601 Pain in right arm Osito Acharya D.O. 08/27/2018 W55.12xA Struck by horse, initial encounter Osito Acharya D.O. 07/17/2018 M25.512 Pain in left shoulder Osito Acharya D.O. 07/17/2018 Z68.22 Body mass index (BMI) 22.0-22.9, adult Osito Acharya D.O. Plan of Treatment Future Appointment(s):01/13/2020 10:30 am - Osito Acharya D.O. at [facility]/11/2019 - Osito Acharya D.O.H04.123 Dry eye syndrome of bilateral lacrimal uhwghfJ84.00 Raynaud's syndrome without bwyxybjsH32.00 Encounter for general adult medical examination without abnoFollow up:1 year CPHL/DMHMM79.641 Pain in right handM79.642 Pain in left hand Functional Status Description No Information Available Mental Status Description No Information Available Referrals Description No Information Available
--- OUTSIDE RECORDS SUMMARY | 2019-02-26 17:30 | XMS REPORT | Summary of Care ---
:1954 Author Organization [facility] Address [address] [place] [address] Care Team Providers Name Role Phone [facility] Primary Care Provider Reason for Visit Reason Comments Blurred Vision Encounter Details Date Type Department Care Team Description 01/21/2019 Office Visit [facility] Raffaele Hammond Sudden visual loss of Vision Care PMD left eye (Primary Dx) [address] [facility] [address] [place] [address] [place] [phone] Allergies Active Allergy Reactions Severity Noted Date Comments Penicillins Anaphylaxis High 11/30/2018 documented as of this encounter (statuses as of 02/11/2019) Medications Medication Sig Dispensed Refills Start Date [...] 4 (four) hours as needed for Pain Hospital, Clinic, or Ordered Dose Route Frequency Start Date End Date Status Other Facility Administered Medication tropicamide (MYDRIACYL) 1 drop Both Eyes Once 01/21/2019 01/21/2019 Ended 1 % ophthalmic solution 1 drop phenylephrine (MYDFRIN) 1 drop Both Eyes Once 01/21/2019 01/21/2019 Ended 2.5 % ophthalmic solution 1 drop fluorescein-benoxinate 1 drop Both Eyes Once 01/21/2019 01/21/2019 Ended (FLURATE) 0.25-0.4 % ophthalmic solution 1 drop documented as of this encounter (statuses as of 02/11/2019) Active Problems Problem Noted Date Sarcoidosis 01/28/2019 Non-seasonal allergic rhinitis 01/28/2019 Uveitis 12/11/2018 Mediastinal adenopathy 12/01/2018 documented as of this encounter (statuses as of 02/11/2019) Resolved Problems Problem Noted Date Resolved Date Giant cell arteritis 11/30/2018 01/28/2019 documented as of this encounter (statuses as of 02/11/2019) Social History Tobacco Use Types Packs/Day Years [...] Signs Not on filedocumented in this encounter Patient Instructions Patient InstructionsHaRaffaele heller MD - 01/21/2019 2:00 PM ESTPlease follow the physician's instructions as communicated during the office visit. Medications should be taken/given as prescribed or recommended by the physician. Please keep the follow-up appointment as recommended by the physician and return sooner if any changes, questions, or concerns arise. documented in this encounter Progress Notes Raffaele Hammond MD - 01/21/2019 2:00 PM EST Chief Complaint Patient presents with Blurred Vision HPI Blurred Vision In both eyes. Comments LV 12/23/18 HX: Ant. Uveitis, Cataract OU Current eye meds: NONE " I have had headaches for 2 years, temporal regions that radiate to the back of the head, 4-5 on pain scale I was given Tylenol with some relief but it really never truly goes away denies any head trauma/concussion. 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 (History) History: Patient's medications, allergies, past medical, surgical, social, and family histories werereviewed and updated as appropriate. Past Surgical History: Procedure Laterality Date CARPAL TUNNEL RELEASE CHOLECYSTECTOMY LUMBAR PUNCTURE 11/2018 [facility] EBUS GUIDED SAMPL 1/2 NODE STATION/STRUX N/A 12/29/2018 Procedure: [facility] EBUS GUIDED SAMPL 1/2 NODE STATION/STRUX with cytology; Surgeon: Kendell Grant MD; Location: OR ENDO; Service: Endoscopy; Laterality: N/A; [place] [facility] INCL FLUOR GDNCE DX W/CELL WASHG SPX N/A 12/29/2018 Procedure: BRONCHOSCOPY, RIGID/FLEX, W/WO FLUORO GUID W/WO CELL WASHING (SEP PROC) with cytology, with c-arm; Surgeon: Kendell Grant MD; Location: OR ENDO; Service: Endoscopy; Laterality: N/A; [place] TEMPORAL ARTERY LIGATN OR BX N/A 12/03/2018 Procedure: LIGATION/BX, TEMPORAL ARTERY; Surgeon: Madonna Trejo MD; Location : OR [facility]; Service: Vascular; Laterality: N/A; Past Medical History: Diagnosis Date Allergy Arthritis GERD (gastroesophageal reflux disease) Headache severe Hepatitis Hepititis C has been treated for 2010 Hypertension Low back pain arthiritis Mediastinal adenopathy 12/01/2018 Myocardial infarction in 2000 Substance abuse quit 18 years ago narcotics Family History Problem Relation Age of Onset Heart disease Mother Cancer Father Heart disease Sister Social History Socioeconomic History Marital status: Single Spouse name: Not on file Number of children: Not on file Years of education: Not on file Highest education level: Not on file Occupational History Not on file Social Needs Financial resource strain: Not on file Food insecurity: Worry: Not on file Inability: Not on file Transportation needs: Medical: Not on file Non-medical: Not on file Tobacco Use Smoking status: Former Smoker Packs/day: 0.00 Smokeless tobacco: Never Used Tobacco comment: quit 2000 Substance and Sexual Activity Alcohol use: Not Currently Comment: alcohol abuse quit 2000 Drug use: Not Currently Comment: quit 2000 Sexual activity: Not on file Lifestyle Physical activity: Days per week: Not on file Minutes per session: Not on file Stress: Not on file Relationships Social connections: Talks on phone: Not on file Gets together: Not on file Attends gnosticism service: Not on file Active member of club or organization: Not on file Attends meetings of clubs or organizations: Not on file Relationship status: Not on file Intimate partner violence: Fear of current or ex partner: Not on file Emotionally abused: Not on file Physically abused: Not on file Forced sexual activity: Not on file Other Topics Concern Not on file Social History Narrative Not on file Review of Systems: positive for Eyes All other systems have been reviewed and are negative. OPHTH Exam: Base Eye Exam Visual Acuity (Snellen - Linear) Right Left Dist cc 20/40 20/200 Dist ph cc NI NI Correction: Glasses Tonometry (Applanation, 2:14 PM) Right Left Pressure 13 13 Pupils Dark APD Right 3 None Left 3 None Extraocular Movement Right Left Full Full Neuro/Psych Oriented x3: Yes Mood/Affect: Normal Dilation Both eyes: 1.0% Tropicamide/2.5% Phenylephrine @ 2:14 PM Additional Tests Color Right Left Ishihara 12/24 09/23 Glare Testing High Right 20/50 Left 20/400 Slit Lamp and Fundus Exam External Exam Right Left External Normal Normal Slit Lamp Exam Right Left Lids/Lashes Normal Normal Conjunctiva/Sclera White and Quiet White and Quiet Cornea Clear Clear Anterior Chamber Deep and Quiet Deep and Quiet Iris flat, post syn inf flat, post syn 12 Lens 2+ ns, 1+ cs faint pigment on anterior capsule 2+ NS, 1+cs Vitreous Clear, no cell, no snowballs, no snowbanks Clear, no cell, no snowballs, no snowbanks Fundus Exam Right Left Disc Sharp and [place] Sharp with ?mild temporal pallor C/D Ratio 0.15 0.15 Macula RPE mottline with a few drusen Normal Vessels Normal caliber with a few perivascular drusen Normal caliber with a few perivascular drusen, 1 CWS along inferotemporal arcade Periphery Flat x 4 Quadrants, No Holes, Tears, or Detachments Flat x 4 Quadrants, No Holes, Tears, or Detachments Refraction Wearing Rx Sphere Cylinder Reserve Add Right +2.25 +0.50 004 +2.50 Left +2.50 +1.00 172 +2.50 Manifest Refraction Sphere Cylinder Reserve Dist VA Right +3.00 +0.75 004 20/40 Left +3.00 +1.00 175 20/200 We administered tropicamide, phenylephrine, and fluorescein-benoxinate. The following tests were performed today and reviewed with the patient (for the professional interpretation refer to the Oph Proc tab in chart review): OPH Smith visual field - OU Right Eye Quality was good. Reliability was borderline. Progression: improved. Findings include superior arcuate defect, inferior arcuate defect. Left Eye Quality was good. Reliability was borderline. Progression: improved. Findings include generalized depression. Notes Possible rim artifact OD, possible cloverleaf vs generalized depression OS DX/Plan: Milind Ulrich is a 64 y.o. male with: #Head pain and decreased vision Admission 11/30/18 with suspicion on GCA. ESR 61, CRP 267.5, plts 361. TAB negative Treated with po pred; finished around 12/20/18 VA slightly better than prior per patient # Sarcoidosis with findings of prior anterior uveitis OU concern for sarcoid given hilar, axillary, and mediastinal LAD. 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 Negative work up: normal serum and CSF GUNNER, MRI and CT head, Blood work OCT nfl; acceptable OCT M; no fluid, no massive atrophy VF: unreliable, diffuse constriction, nonspecific IVFA; no leakage, no staining; reasonable flow 01/21/19 Just diagnosed with sarcoidosis by LN biopsy as above Repeat visual monroe with borderline poor reliability OU with less dense defects : superior and inferior arcuate vs rim artifact OD and possible cloverleaf vs generalized depression OS BCVA stable No active inflammation on exam while off steroids Plan: F/u in 3 months for repeat RNFL Plan on repeat visual monroe in another 6 months F/u with pulm as scheduled # Combined Cataract ou ?visually significant Check glare on follow up Counseling provided for the following issues, either verbally and/or hand-out: N /A Seen with CAROLYN Gregory Patient to call with any change, concern, or new ophthalmic or eye related issues. F/U: Return in about 3 months (around 04/22/2019) for General, OCT rnfl, Glare. Dilate no Raffaele Hammond M.D. Resident's history reviewed, patient interviewed and examined. I agree. On exam I find: COnplex history with sudden vision loss OS, had TABx done that was negative and LN biopsy is positivie for sarcoidosis. Pt with possible mild pallor OS, and diminished color testing and POsitive APD OS. MRI brain is wnl. NO evidence of retinal vasculitis OS. 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 Pt follows now with assistant attorney general and neurologist. Assessment and plan reviewed with resident. IDemetri Evis, MD, agree with the diagnosis and treatment plan as documented by the resident. Carolyn Mosquera MD documented in this encounter Plan of Treatment Date Type Specialty Care Team Description 02/25/2019 Office Visit Neurology Valentine Johnson MD [address] [facility] 4th Floor [address] [place], [place] [id number] 04/22/2019 Office Visit Cardiology Belkis Gillette MD [address] [place] [address] 04/29/2019 Office Visit Pulmonology Health Maintenance Due Date Last Done Comments [...] 11/30/2018 Hepatitis C Screening (B. Completed 11/30/2018, [id number]) 11/30/2018 HIB Vaccines Aged Out No longer [...] Procedure Name Priority Date/Time Associated Diagnosis Comments SMITH VISUAL Routine 01/21/2019 2:32 PM Sudden visual loss Results for this FIELD - OU - BOTH EST of left eye procedure are in EYES the results section. documented in this encounter Results OPH Smith visual field - OU (01/21/2019 2:32 PM EST) Specimen Narrative Performed At Right Eye [facility] Quality was good. Reliability was borderline. Progression: improved. Findings include superior arcuate defect, inferior arcuate defect. Left Eye Quality was good. Reliability was borderline. Progression: improved. Findings include generalized depression. Notes Possible rim artifact OD, possible cloverleaf vs generalized depression OS Performing Organization Address [facility] Phone Number [facility] [address] [place] [address] [phone] documented in this encounter Visit Diagnoses Diagnosis Sudden visual loss of left eye - Primary Sudden visual loss documented in this encounter Administered Medications Medication Order MAR Action Action Date Dose Rate Site fluorescein-benoxinate (FLURATE) Given 01/21/2019 2:15 PM EST 1 drop 0.25-0.4 % ophthalmic solution 1 drop 1 drop, Both Eyes, Once, Janey 01/21/19 at 1430, For 1 dose phenylephrine (MYDFRIN) 2.5 % ophthalmic Given 01/21/2019 2:15 PM EST 1 drop solution 1 drop 1 drop, Both Eyes, Once, Janey 01/21/19 at 1430, For 1 dose tropicamide (MYDRIACYL) 1 % ophthalmic Given 01/21/2019 2:15 PM EST 1 drop solution 1 drop 1 drop, Both Eyes, Once, Janey 01/21/19 at 1430, For 1 dose documented in this encounter
--- OUTSIDE RECORDS SUMMARY | 2019-02-26 17:30 | XMS REPORT | Summary of Care ---
:1954 Author Organization [facility] Address [address] [place] [address] Care Team Providers Name Role Phone [facility] Primary Care Provider Reason for Visit Auth/Cert Status Reason Specialty Diagnoses / Referred By Referred To Contact Procedures Contact Diagnoses Mediastinal adenopathy [R59.0] Kendell Grant MD [address] [place] [address] 2nd [address] [place] [address] Email: [email or web address] Encounter Details Date Type Department Care Team Description 12/29/2018 Hospital Encounter GI Services Kendell Grant MD [address] [place] [address] 2[address] [place] [address] [phone] Allergies Active Allergy Reactions Severity Noted Date Comments Penicillins Anaphylaxis High 11/30/2018 documented as of this encounter (statuses as of 12/29/2018) Medications Medication Sig Dispensed Refills Start End Date Status Date hydrochlorothiazide Take 25 mg 3 Active (HYDRODIURIL) 25 MG by mouth 9 tablet daily predniSONE (DELTASONE) Take 3 90 tablet 0 01/04/20 Active 20 MG tablet tablets by 9 19 mouth daily pantoprazole (PROTONIX) Take 1 30 tablet 5 12/02/19 Active 40 MG tablet tablet by 9 20 mouth daily calcium-vitamin D Take 1 30 tablet 5 12/02/19 Active (OSCAL) 250-125 MG-UNIT tablet by 9 20 per tablet mouth daily Omeprazole (PRILOSEC Take 20 mg 0 Active PO) by mouth daily Acetaminophen 325 MG Take 650 mg 0 Active Oral Tablet by mouth every 4 (four) hours as needed for Pain Cyclopentolate HCl 1 % 1 drop once 0 12/30/19 Discontinued Ophthalmic Solution 19 (Not effective) (CYCLODRYL) documented as of this encounter (statuses as of 12/29/2018) Active Problems Problem Noted Date Uveitis 12/11/2018 Mediastinal adenopathy 12/01/2018 Giant cell arteritis 11/30/2018 documented as of this encounter (statuses as of 12/29/2018) Social History Tobacco Use Types Packs/Day Years [...] of this encounter Last Filed Vital Signs Vital Sign Reading Time Taken Comments Blood Pressure 111/85 12/29/2018 2:10 PM EST Pulse 84 12/29/2018 2:10 PM EST Temperature 36.8 12/29/2018 11:12 AM EST C (98.2 F) Respiratory Rate 16 12/29/2018 2:10 PM EST Oxygen Saturation 94% 12/29/2018 2:10 PM EST Inhaled Oxygen Concentration - - Weight 106.1 kg (234 lb) 12/29/2018 11:12 AM EST Height 175.3 cm (5' 9") 12/29/2018 11:12 AM EST Body Mass Index 34.56 12/29/2018 11:12 AM EST documented in this encounter Progress Notes Matthias Pitts RRT - 12/29/2018 1:53 PM ESTRESPIRATORY CARE NOTE: The therapist assisted in a diagnostic bronchoscopy in the endoscopy suitevia the mouth. The patient tolerated the bronchoscopy well. The patient was suctioned for moderate amount of thin clear and bloody. No, there were no adverse effects noted during the bronchoscopy. The therapist assisted in the bronchoscopy for 90 min documented in this encounter Plan of Treatment Date Type Specialty Care Team Description 01/21/2019 Office Visit Ophthalmology 02/25/2019 Office Visit Neurology Valentine Johnson MD [address] [facility] 4th Floor [address] [place] [address] [phone] Name Type Priority Associated Date/Time Diagnoses Fine Needle Aspirate Pathology and Routine 12/29/2018 1:28 Cytology PM EST Cytology, Non Pathology and Routine 12/29/2018 1:31 Gynecological Cytology PM EST Surgical Pathology Pathology and Routine 12/29/2018 2:48 Exam ([facility] Only) Cytology PM EST Name Type Priority Associated Order Schedule Diagnoses Flouroscopy - C-ARM GI Routine Once for 1 Occurrences starting 12/29/2018 until 12/29/2018 Fine Needle Aspirate Pathology and Routine Once for 1 Cytology Occurrences starting 12/29/2018 until 12/29/2018 Cytology, Non Pathology and Routine Once for 1 Gynecological Cytology Occurrences starting 12/29/2018 until 12/29/2018 Surgical Pathology Pathology and Routine Once for 1 Exam ([facility] Only) Cytology Occurrences starting 12/29/2018 until 12/29/2018 Cytology, Non Pathology and Routine Once for 1 Gynecological Cytology Occurrences starting 12/29/2018 until 12/29/2018 Fungus culture Microbiology Routine Once for 1 Occurrences starting 12/29/2018 until 12/29/2018 Quantitative Microbiology Routine Once for 1 Bronchoscopy Occurrences starting 12/29/2018 until 12/29/2018 AFB culture; Microbiology Routine Once for 1 Bronchoalveolar Lavage Occurrences starting 12/29/2018 until 12/29/2018 Cytology, Non Pathology and Routine Once for 1 Gynecological Cytology Occurrences starting 12/29/2018 until 12/29/2018 Surgical Pathology Pathology and Routine Once for 1 Exam ([facility] Only) Cytology Occurrences starting 12/29/2018 until 12/29/2018 Fine Needle Aspirate Pathology and Routine Once for 1 Cytology Occurrences starting 12/29/2018 until 12/29/2018 Cytology, Non Pathology and Routine Once for 1 Gynecological Cytology Occurrences starting 12/29/2018 until 12/29/2018 Surgical Pathology Pathology and Routine Once for 1 Exam ([facility] Only) Cytology Occurrences starting 12/29/2018 until 12/29/2018 Health Maintenance Due Date Last Done Comments MMR Vaccines (1 of 1 - 1955 Standard series) Pneumococcal Vaccine: 1960 Pediatrics (0 to 5 Years) and At-Risk Patients (6 to 64 Years) (1 of 1 - PPSV23) DTaP,Tdap,and Td Vaccines (1 08/07/1963 - Tdap) Colon Cancer Screening 10 yrs 2006 Zoster Vaccines (1 of 2) 2006 Influenza Vaccine 11/10/2018 Pneumococcal Vaccine: 65+ 2021 Years (1 of 2 - PCV13) HIV Screening Completed 11/30/2018 Hepatitis C Screening (B. Completed 11/30/2018, [id number]) 11/30/2018 HIB Vaccines Aged Out No longer eligible based on patient's age to complete this topic Hepatitis A Vaccines Aged Out No longer eligible based on patient's age to complete this topic Hepatitis B Vaccines Aged Out No longer eligible based on patient's age to complete this topic IPV Vaccines Aged Out No longer eligible based on patient's age to complete this topic Varicella Vaccines Aged Out No longer eligible based on patient's age to complete this topic documented as of this encounter Procedures Procedure Name Priority Date/Time Associated Comments Diagnosis XR CHEST FRONTAL ONLY STAT 12/29/2018 1:58 Results for this 77612 PM EST procedure are in the results section. BRONCHOSCOPY REPORT 12/29/2018 12:00 AM EST documented in this encounter Results XR Chest Frontal Only (12/29/2018 1:58 PM EST) Specimen Impressions Performed At IMPRESSION: [facility] Focal airspace opacity at the right middle lobe is new from the previous study, and may reflect some component of postbiopsy hemorrhage/contusion. Narrative Performed At CHEST SINGLE VIEW. [facility] INDICATION: Status post transbronchial biopsy of the right middle lobe. TECHNIQUE: A single 75 degrees frontal portable chest radiograph was obtained. COMPARISON: Chest radiograph dated 11/30/2018 FINDINGS: There is persistent linear atelectasis versus scarring at the left lower lung zone, unchanged. Focal airspace opacity at the right middle lobe is new from the previous study, and may reflect some component of postbiopsy hemorrhage/contusion. The lungs are otherwise clear. The cardiomediastinal silhouette is within the confines of normal. There is no large pleural effusion or pneumothorax. The appearance of the chest wall and osseous structures unchanged. Procedure Note Interface, Received Via [employer] System - 12/29/2018 2:30 PM EST CHEST SINGLE VIEW. INDICATION: Status post transbronchial biopsy of the right middle lobe. TECHNIQUE: A single 75 degrees frontal portable chest radiograph was obtained. COMPARISON: Chest radiograph dated 11/30/2018 FINDINGS: There is persistent linear atelectasis versus scarring at the left lower lung zone, unchanged. Focal airspace opacity at the right middle lobe is new from the previous study , and may reflect some component of postbiopsy hemorrhage/contusion. The lungs are otherwise clear. The cardiomediastinal silhouette is within the confines of normal. There is no large pleural effusion or pneumothorax. The appearance of the chest wall and osseous structures unchanged. IMPRESSION: Focal airspace opacity at the right middle lobe is new from the previous study , and may reflect some component of postbiopsy hemorrhage/contusion. Performing Organization Address City/State/Zipcode Phone Number [facility] [address] [place] [address] documented in this encounter
--- OUTSIDE RECORDS SUMMARY | 2019-02-26 17:30 | XMS REPORT | Summary of Care ---
:1954 Author Organization [facility] Address [address] [place] [address] Care Team Providers Name Role Phone [facility] Primary Care Provider Reason for Referral Consultation (Routine) Status Reason Specialty Diagnoses / Referred By Referred To Procedures Contact Contact Authorized Specialty Cardiology Diagnoses Abnormal ECG Sarcoidosis Kendell Grant, Cardiology Services Provider-Based Required [address] [facility] [place] [address], [address] Phone: [phone] Phone: Email: [email or web address] Reason for Visit Reason Comments New Patient Encounter Details Date Type Department Care Team Description 01/28/2019 Office Visit [facility] at Kendell Grant MD Mediastinal adenopathy (Primary Dx); [address] Uveitis; [place] [address] Abnormal ECG; [address] [place] [address] Sarcoidosis; [address]nd Floor, [address] Non-seasonal allergic [place]initis, [place] [address] Allergies Active Allergy Reactions Severity Noted Date Comments Penicillins Anaphylaxis High 11/30/2018 documented as of this encounter (statuses as of 01/29/2019) Medications Medication Sig Dispensed Refills Start Date [...] 4 (four) hours as needed for Pain Fluticasone Propionate 50 1 spray by Nasal 1 each 12 01/28/20192019 Active MCG/ACT Nasal Suspension route daily documented as of this encounter (statuses as of 01/29/2019) Active Problems Problem Noted Date Sarcoidosis 01/28/2019 Non-seasonal allergic rhinitis 01/28/2019 Uveitis 12/11/2018 Mediastinal adenopathy 12/01/2018 documented as of this encounter (statuses as of 01/29/2019) Resolved Problems Problem Noted Date Resolved Date Giant cell arteritis 11/30/2018 01/28/2019 documented as of this encounter (statuses as of 01/29/2019) Social History Tobacco Use Types Packs/Day Years [...] Sign Reading Time Taken Comments Blood Pressure 109/76 01/28/2019 8:59 AM EST Pulse 81 01/28/2019 8:59 AM EST Temperature 36.7 01/28/2019 8:59 AM EST C (98 F) Respiratory Rate 16 01/28/2019 8:59 AM EST Oxygen Saturation 96% 01/28/2019 8:59 AM EST Inhaled Oxygen Concentration - - Weight 108.4 kg (239 lb) 01/28/2019 8:59 AM EST Height 175.3 cm (5' 9") 01/28/2019 8:59 AM EST Body Mass Index 35.29 01/28/2019 8:59 AM EST documented in this encounter Patient Instructions Patient InstructionsKendell Grant MD - 01/28/2019 9:00 AM ESTPlease call if any worsening shortness of breath, cough or palpitations/ dizziness/ passing out. documented in this encounter Progress Notes Kendell Grant MD - 01/28/2019 9:00 AM EST The patient is coming today for followup after bronchoscopy. He was initially seen in November, whenhe presented with headaches. A CT chest at that point showed mild mediastinal adenopathy in the right lower paratracheal, subcarinal, and bilateral hilar areas. His workup for temporal arteritis was negative. I scheduled him for outpatient bronchoscopy and with endobronchial ultrasound- guided needle aspiration of the subcarinal lymph node that showed noncaseating granulomas. His AFB, fungal and bacterial cultures were negative. This is consistent with sarcoidosis. He is coming here for a followup. He complains of a dry cough, but no shortness of breath or hemoptysis. He has occasional palpitations, but no syncope or dizzy spells. He did have a flu shot this season. He continues to have headaches and has an appointment with Neurology next month. He also has problems with poor vision, but ophthalmology exam shows no evidence of inflammation/uveitis. History of present illness 11/30/2018: Milind Ulrich is a 64 y.o. male seen today for evaluationof abnormal CT scan of the chest. He is a very pleasant 64- year-old man who was admitted yesterday with complaints of severe bitemporal headaches. His neurological workup so far includes a negative CT head and MRI brain. He has elevated sedimentation rate and CRP, and there is concern about temporal arteritis, and Surgery was consulted for temporal artery biopsy. During his workup, he was found to have hilar fullness on the chest x-ray and CT scan of the chest was done that showed mediastinal adenopathy, hence pulmonary consultation. The patient denies any cough, sputum production, or chest pains. Denies any fever, chills, or night sweats. Denies any weight loss or decreased appetite. He has had negative PPDs for several years and negative QuantiFERON test for the last couple years while incarcerated. He was released earlier in July of this year. He does have a historyof 2 cousins with leukemia and a niece with cardiac sarcoidosis. Chief Complaint Patient presents with New Patient Past Medical History: Diagnosis Date Allergy Arthritis GERD (gastroesophageal reflux disease) Headache severe Hepatitis Hepititis C has been treated for 2010 Hypertension Low back pain arthiritis Mediastinal adenopathy 12/01/2018 Myocardial infarction in 2000 Substance abuse quit 18 years ago narcotics Past Surgical History: Procedure Laterality Date CARPAL TUNNEL RELEASE CHOLECYSTECTOMY LUMBAR PUNCTURE 11/2018 [place] [facility] EBUS GUIDED SAMPL 1/2 NODE STATION/STRUX N/A 12/29/2018 Procedure: [facility] EBUS GUIDED SAMPL 1/2 NODE STATION/STRUX with cytology; Surgeon: Kendell Grant MD; Location: OR ENDO; Service: Endoscopy; Laterality: N/A; [place] [facility] INCL FLUOR GDNCE DX W/CELL WASHG SPX N/A 12/29/2018 Procedure: BRONCHOSCOPY, RIGID/FLEX, W/WO FLUORO GUID W/WO CELL WASHING (SEP PROC) with cytology, with c-arm; Surgeon: Kendell Grant MD; Location: OR ENDO; Service: Endoscopy; Laterality: N/A; [place] TEMPORAL ARTERY LIGATN OR BX N/A 12/03/2018 Procedure: LIGATION/BX, TEMPORAL ARTERY; Surgeon: Madonna Trejo MD; Location : OR [facility]; Service: Vascular; Laterality: N/A; Allergies Allergen Reactions Penicillins Anaphylaxis Current Outpatient Medications Medication Sig Dispense Refill Acetaminophen 325 MG Oral Tablet Take 650 mg by mouth every 4 (four) hours as needed for Pain calcium-vitamin D (OSCAL) 250-125 MG-UNIT per tablet Take 1 tablet by mouth daily 30 tablet 5 hydrochlorothiazide (HYDRODIURIL) 25 MG tablet Take 25 mg by mouth daily 3 Omeprazole (PRILOSEC PO) Take 20 mg by mouth daily Fluticasone Propionate 50 MCG/ACT Nasal Suspension 1 spray by Nasal route daily 1 each 12 pantoprazole (PROTONIX) 40 MG tablet Take 1 tablet by mouth daily ( Patient not taking: Reported on 01/21/2019) 30 tablet 5 No current facility-administered medications for this visit. Family History Problem Relation Age of Onset Heart disease Mother Cancer Father Heart disease Sister Social History Social History Tobacco Use Smoking status: Former Smoker Packs/day: 0.00 Smokeless tobacco: Never Used Tobacco comment: quit 2000 Substance Use Topics Alcohol use: Not Currently Comment: alcohol abuse quit 2000 Occupational History from recent to remote: recently released form long-term. Lab Results Component Value Date WBC 7.3 12/10/2018 HGB 13.1 (L) 12/10/2018 HCT 40.7 (L) 12/10/2018 PLT 497 (H) 12/10/2018 ALT 12 12/03/2018 AST 14 12/03/2018 NA 137 12/10/2018 K 4.2 12/10/2018 CL 100 12/10/2018 CREATININE 1.08 12/10/2018 BUN 20 12/10/2018 INR 1.23 12/02/2018 HGBA1C 5.8 12/02/2018 Review of Systems Constitutional: Negative for chills, diaphoresis, fever, malaise/fatigue and weight loss. HENT: Negative for congestion, nosebleeds and sore throat. Respiratory: Positive for cough. Negative for hemoptysis, sputum production, shortness of breath, wheezing and stridor. Cardiovascular: Positive for palpitations. Negative for chest pain, orthopnea, claudication, leg swelling and PND. Gastrointestinal: Negative for abdominal pain, constipation, diarrhea, heartburn , nausea and vomiting. Musculoskeletal: Negative for back pain, joint pain, myalgias and neck pain. Skin: Negative for itching and rash. Neurological: Positive for headaches. Negative for dizziness, seizures and loss of consciousness. Psychiatric/Behavioral: Negative for depression, hallucinations, memory loss, substance abuse and suicidal ideas. The patient is not nervous/anxious and does not have insomnia. Visit Vitals BP 109/76 (BP Location: Left arm, Patient Position: Sitting, Cuff size: Adult Large) Pulse 81 Temp 36.7 C (98 F) (Oral) Resp 16 Ht 1.753 m (5' 9") Wt 108.4 kg (239 lb) SpO2 96% BMI 35.29 kg/m Physical Exam Constitutional: No distress. HENT: Head: Normocephalic and atraumatic. Nose: Mucosal edema and rhinorrhea present. Mouth/Throat: Posterior oropharyngeal erythema present. Neck: No JVD present. No tracheal deviation present. Cardiovascular: Normal rate and normal heart sounds. Exam reveals no gallop. No murmur heard. Pulmonary/Chest: No respiratory distress. He has no wheezes. He has no rales. Abdominal: He exhibits no distension. There is no abdominal tenderness. There is no rebound and no guarding. Musculoskeletal: General: No tenderness or edema. Lymphadenopathy: He has no cervical adenopathy. Skin: No rash noted. He is not diaphoretic. No erythema. His spirometry today was normal with an FVC of 93% of predicted and an FEV1 of 92% of predicted. His calcium and LFTs were normal in November of 2018. His creatinine was 1.08. Assesment & Plan: 1. Mediastinal adenopathy 2. Uveitis 3. Abnormal ECG Ambulatory Referral to Cardiology 4. Sarcoidosis Ambulatory Referral to Cardiology Diffusion Capacity (DLCO) 5. Rhinitis/ PND Patient has sarcoidosis with mild mediastinal adenopathy, but no evidence of pulmonary parenchymal involvement and no eye involvement per recent ophthalmology exam. Also, MRI of the head did not show any leptomeningeal enhancement, so it would be unlikely that his headaches are related to sarcoid. At this point, there is no acute indication to treat him with steroids. He will follow up closely in 3 months. He does have Q waves in inferior leads and occasional palpitations, so I am going to referhim to Cardiology for an evaluation. Patient is advised to report any worsening shortness of breath, chest pains, worsening palpitations, dizziness, or syncope. He does seem to have rhinitis and somemild pharyngeal erythema, and I am going to try him with Flonase. Orders Placed This Encounter Ambulatory Referral to Cardiology Referral Priority: Routine Referral Type: Consultation Referral Reason: Specialty Services Required Requested Specialty: Cardiology Number of Visits Requested: 1 Diffusion Capacity (DLCO) Fluticasone Propionate 50 MCG/ACT Nasal Suspension Si spray by Nasal route daily Dispense: 1 each Refill: 12 Requested Prescriptions Signed Prescriptions Disp Refills Fluticasone Propionate 50 MCG/ACT Nasal Suspension 1 each 12 Si spray by Nasal route daily documented in this encounter Plan of Treatment Date Type Specialty Care Team Description 02/25/2019 Office Visit Neurology Valentine Johnson MD [address] [place] [address] [address] [place] [id number] [phone] 04/29/2019 Office Visit Pulmonology Name Type Priority Associated Diagnoses Order Schedule Diffusion Capacity (DLCO) PFT Routine Sarcoidosis Ordered: 01/28/2019 Name Type Priority Associated Order Schedule Diagnoses Ambulatory Referral Outpatient Referral Routine Abnormal ECG Ordered: to Cardiology Sarcoidosis 01/28/2019 Health Maintenance Due Date Last Done Comments [...] 11/30/2018 Hepatitis C Screening (B. Completed 11/30/2018, [id number]) 11/30/2018 HIB Vaccines Aged Out No longer [...] this topic documented as of this encounter Results Not on filedocumented in this encounter Visit Diagnoses Diagnosis Mediastinal adenopathy - Primary Enlargement of lymph nodes Uveitis Unspecified iridocyclitis Abnormal ECG Nonspecific abnormal electrocardiogram (ECG) (EKG) Sarcoidosis Non-seasonal allergic rhinitis, unspecified trigger documented in this encounter
[2019-02-26 17:54] VITALS: BP 133/73
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
== END 2019-02-26 18:35 | disposition home or self-care (01) ==
LOC: UCCORT 17:17
DX: S20.219A Contusion of unspecified front wall of thorax, initial encounter (principal); V69.9XXA Occupant (driver) (passenger) of heavy transport vehicle injured in unspecified traffic accident, initial encounter; Y92.9 Unspecified place or not applicable
CPT/HCPCS: 71046; 99211; G0463